=== PATIENT | male | born 1960 | race Caucasian/White ===

== ENCOUNTER → 2020-01-02 | Outpatient (CLI) | payer SELFPAY ==
[~2020-01-02] MED LIST: SULTRIDS PO
== END | disposition home or self-care (01) ==
LOC: LAB SHORT 09:27 → PLD 09:27
DX: C44.519 Basal cell carcinoma of skin of other part of trunk (principal)
CPT/HCPCS: 88305

== ENCOUNTER 2023-06-30 16:34 | Observation (INO) | payer OTHER ==
[~2023-06-30] VITALS: Ht 167.6 cm; Wt 66.9 kg
[2023-06-30 17:57] LABS: BASOPHILS ABSOLUTE AUTO 0.03 K/mm3 (0.00-0.23); BASOPHILS PERCENT AUTO 0 % (0-2); EOSINOPHILS ABSOLUTE AUTO 0.14 K/mm3 (0.00-0.68); EOSINOPHILS PERCENT AUTO 2 % (0-6); Hematocrit 42.8 % (37.0-53.0); Hemoglobin 14.5 g/dL (13.5-17.5); IMMATURE GRAN ABSOLUTE AUTO 0.02 K/mm3 (0.00-0.10); IMMATURE GRAN PERCENT AUTO 0 % (0-1); LYMPHOCYTES ABSOLUTE AUTO 1.83 K/mm3 (0.84-5.20); LYMPHOCYTES PERCENT AUTO 26 % (21-46); MONOCYTES ABSOLUTE AUTO 0.63 K/mm3 (0.16-1.47); MONOCYTES PERCENT AUTO 9 % (4-13); Mean Corpuscular HGB 31.3 pg (26.0-34.0); Mean Corpuscular HGB Conc 33.9 g/dL (31.5-36.5); Mean Corpuscular Volume 92 fL (80-100); Mean Platelet Volume 9.7 fL (9.1-12.4); NEUTROPHILS ABSOLUTE AUTO 4.52 K/mm3 (1.96-9.15); NEUTROPHILS PERCENT AUTO 63 % (41-73); Platelet Count 247 K/mm3 (150-400); RDW Coefficient Variation 12.3 % (11.7-14.2); RDW Standard Deviation 41.7 fL (35.1-46.3); Red Blood Cell Count 4.63 M/mm3 (4.30-5.90); White Blood Cell Count 7.17 K/mm3 (4.00-11.30)
[2023-06-30 18:18] LABS: Albumin, Blood 3.9 g/dL (3.4-5.0); Bilirubin, Total 0.6 mg/dL (0.1-1.0); Bun/Creatinine Ratio 18.1 (12.0-20.0); Calcium, Blood 9.9 mg/dL (8.5-10.1); Creatinine, Blood 0.61 mg/dL (0.60-1.20); Globulin, Blood 4.1 g/dL (2.2-4.0); Potassium, Blood 4.1 mmol/L (3.5-5.5)
[2023-06-30] MEDS ORDERED: BACL10 PO (20:57)
[2023-06-30] MEDS ORDERED: GABA400 PO (20:57)
[2023-06-30] MEDS ORDERED: OXYC5 PO (20:57)
[2023-06-30] MEDS ORDERED: FentaNYL Citrate 50 MCG/ML 2 ML Injection IV ONE (21:20)
[2023-06-30] MEDS ORDERED: Dicyclomine HCl 20 MG Tab PO ONE (21:20)
[2023-06-30] MEDS ORDERED: Ondansetron HCl 2 MG / ML 2ML Vial IV ONE (21:20)
[2023-06-30] MEDS ORDERED: NS 1,000 ML IV SCH (22:35)
[2023-06-30] MEDS ORDERED: FentaNYL Citrate 50 MCG/ML 2 ML Injection IV PRN (22:35)
[2023-06-30] MEDS ORDERED: Ondansetron HCl 2 MG / ML 2ML Vial IV PRN (22:35)
[2023-07-01] VITALS (18 sets, daily range): BP systolic 107–165; BP diastolic 63–98
--- NOTE | 2023-07-01 00:42 | NUR ---
ARRIVAL PT NEW ADMIT FROM ER W/OTTO. PT ARRIVED IN NO DISTRESS, A/OX4. CAN AMBULATE INDEP W/CANE BUT IS SBA W/ IV POLE. REPORTS RUQ AND UPPER EPIGASTRIC PAIN, MEDICATED PER EMAR. VSS, TELE READS SINUS 80'S. PLAN TO BE NPO FOR PROCEDURE IN THE AM.
[2023-07-01] MEDS ORDERED: Baclofen 10 MG Tab PO SCH (00:45)
[2023-07-01] MEDS ORDERED: Gabapentin 300 MG Cap PO SCH (00:45)
[2023-07-01] MEDS ORDERED: HydrALAZINE HCl 20 MG / ML 1ML Vial IV PRN (01:10)
--- NOTE | 2023-07-01 02:04 | NUR ---
TELE CHANGES CALL FROM TELE THAT THE PATIENT HAS ST ELEVATION AND DEPRESSION. WHEN ASSESSING THE PT HE REMAINS ASYMPTOMATIC. EKG UNREMARKABLE. HOSPITSALIST UPDATED, NO NEW ORDERS AT THIS TIME
[2023-07-01 02:10] LABS: International Normalized Ratio 0.98; Prothrombin Time Results 10.5 Sec (9.7-11.5)
[2023-07-01] MEDS ORDERED: OxyCODONE HCL 5 MG TAB PO PRN (04:50)
--- NOTE | 2023-07-01 06:03 | NUR ---
SHIFT SUMMARY VSS. PT SLEPT ON AND OFF SINCE ARRRIVAL TO THE UNIT. HAS REMAINED NPO IN ANTICIPATION FOR SURGERY TODAY. MEDICATED FOR PAIN WITH PRN'S. PT DENIES N/V. AMBULATING TO BATHROOM W/SBA. TELE IN PLACE, PT REMAINS ASYMPTOMATIC T/O THE NIGHT OF ANY CP/PRESSURE/ TIGHTNESS. NO ACUTE EVENTS NOTED. PT EXPRESSED WANTED TO DISCHARGE HOME TODAY AFTER SURGERY
[2023-07-01 06:53] LABS: BASOPHILS ABSOLUTE AUTO 0.04 K/mm3 (0.00-0.23); BASOPHILS PERCENT AUTO 1 % (0-2); EOSINOPHILS ABSOLUTE AUTO 0.16 K/mm3 (0.00-0.68); EOSINOPHILS PERCENT AUTO 2 % (0-6); Hematocrit 39.6 % (37.0-53.0); Hemoglobin 13.6 g/dL (13.5-17.5); IMMATURE GRAN ABSOLUTE AUTO 0.02 K/mm3 (0.00-0.10); IMMATURE GRAN PERCENT AUTO 0 % (0-1); LYMPHOCYTES PERCENT AUTO 29 % (21-46); MONOCYTES ABSOLUTE AUTO 0.75 K/mm3 (0.16-1.47); MONOCYTES PERCENT AUTO 10 % (4-13); Mean Corpuscular HGB Conc 34.3 g/dL (31.5-36.5); Mean Corpuscular Volume 90 fL (80-100); Mean Platelet Volume 9.5 fL (9.1-12.4); NEUTROPHILS ABSOLUTE AUTO 4.47 K/mm3 (1.96-9.15); NEUTROPHILS PERCENT AUTO 59 % (41-73); Platelet Count 240 K/mm3 (150-400); RDW Standard Deviation 39.8 fL (35.1-46.3); Red Blood Cell Count 4.39 M/mm3 (4.30-5.90); White Blood Cell Count 7.64 K/mm3 (4.00-11.30)
[2023-07-01 07:21] LABS: Albumin, Blood 3.5 g/dL (3.4-5.0); Bilirubin, Total 0.7 mg/dL (0.1-1.0); Calcium, Blood 9.5 mg/dL (8.5-10.1); Creatinine, Blood 0.5 mg/dL (0.60-1.20); Globulin, Blood 3.4 g/dL (2.2-4.0); Potassium, Blood 3.7 mmol/L (3.5-5.5); Total Protein, Blood 6.9 g/dL (6.4-8.2)
[2023-07-01] MEDS ORDERED: propofoL 20 ML IV ONE (12:45)
[2023-07-01] MEDS ORDERED: Rocuronium Bromide 10 MG/ML 5ML Injection IV ONE (12:46)
[2023-07-01] MEDS ORDERED: Lidocaine HCl 2% Jelly 120MG/6ML SYR (20MG PER ML) ONE (12:46)
[2023-07-01] MEDS ORDERED: FentaNYL Citrate 50 MCG/ML 2 ML Injection ONE ×3 (12:46→14:37)
[2023-07-01] MEDS ORDERED: Bupivacaine 0.5% HCl 5 MG/ML 30MLVIAL ONE (12:52)
[2023-07-01] MEDS ORDERED: Midazolam HCl 1MG / ML 2ML Vial IV SCH (13:15)
[2023-07-01] MEDS ORDERED: Lactated Ringer's 1,000 ML IV SCH (13:15)
[2023-07-01] MEDS ORDERED: CeFAZolin Sodium 2,000 MG in NS 100 ML IV SCH (13:20)
--- NOTE | 2023-07-01 13:33 | NUR ---
FLUSHED IV SITE RFA WITH 10NS/PATENT.
[2023-07-01] MEDS ORDERED: Dexamethasone Sod Phos 10 MG/ML 1ML VIAL ONE (13:42)
[2023-07-01] MEDS ORDERED: Ondansetron HCl 2 MG / ML 2ML Vial ONE ×2 (13:42→14:41)
[2023-07-01] MEDS ORDERED: Phenylephrine HCl 100 MCG/ML-NS 10MLSYR (1MG/10ML) ONE (13:43)
[2023-07-01] MEDS ORDERED: Labetalol HCL 5 MG/ML 4ML Injection (Single Dose) ONE (13:55)
[2023-07-01] MEDS ORDERED: Sugammadex Sodium 200 MG/2ML SDV (100 MG/ML) ONE (14:07)
[2023-07-01] MEDS ORDERED: Flumazenil 0.1 MG / ML 5ML Vial ONE (14:16)
[2023-07-01] MEDS ORDERED: HYDROmorphone HCl/Pf 1MG SYR ONE (14:58)
[2023-07-01] MEDS ORDERED: Ketorolac Tromethamine 30mg Vial ONE (15:12)
[2023-07-01] MEDS ORDERED: NS 1,000 ML IV SCH (16:25)
[2023-07-01] MEDS ORDERED: Ondansetron HCl 2 MG / ML 2ML Vial IV PRN (16:25)
[2023-07-01] MEDS ORDERED: OxyCODONE 5 mg/Acetamin 325 mg TABLET PO PRN (17:30)
[2023-07-01] MEDS ORDERED: HYDROmorphone HCl/Pf 1MG SYR IV PRN (17:30)
--- NOTE | 2023-07-01 19:47 | NUR ---
DISCHARGE PT EDUCATED W/ DISCHARGE INSTRUCTIONS. SCRIPT GIVEN TO PT AND COPY IN CHART. PT VERBALIZED UNDERSTANDING AND HAS NO FURTHER QUESTIONS REGAURDING HIS CARE. IV REMOVED, TELE REMOVED. X4 LAP SITES ARE C/D/I, UMBILICAL BANDAIDE CHANGED. PT REPORTS MINIMAL ABD DISCOMFORT AND DOES NOT NEED PAIN MEDICATION AT THIS TIME. AMBULATING INDEP, VOIDING W/O DFFICULTY. TOLLERTING PO INTAKE W/O N/V. AWAITING RIDE TO ARRIVE.
--- NOTE | 2023-07-01 19:57 | NUR ---
LEAVING PATIENT IS BEING WHEELED OUT TO HIS RIDE VIA FARROWING MANAGER
== END 2023-07-01 19:57 | disposition home or self-care (01) ==
LOC: ER 16:34 → SURS 16:35
PROVIDERS: Nurse Practitioner; Surgery; ADMIT Internal Medicine
PROC: 0FT44ZZ Resection of Gallbladder, Percutaneous Endoscopic Approach (ICD-10-PCS; principal; 2023-07-01 13:00)
DX: K80.10 Calculus of gallbladder with chronic cholecystitis without obstruction (principal); I10 Essential (primary) hypertension; Z79.899 Other long term (current) drug therapy
CPT/HCPCS: 36415; 74177; 80053; 83690; 83880; 85025; 85610; 88304; 93005; 93010; 96374-59; 96376; 99285-25; A9270; G0378; J0690; J1100; J1170; J1885; J2250; J2371; J2405; J2704; J3010; J7030; J7120; Q9967

== ENCOUNTER 2023-07-08 06:34 | Emergency (ER) | payer OTHER ==
[~2023-07-08] VITALS: Ht 167.6 cm; Wt 70.3 kg
[~2023-07-08 06:34] MED LIST changes: +BACL10 PO; +GABA400 PO; +OXYC5 PO
[2023-07-08 07:49] LABS: BASOPHILS ABSOLUTE AUTO 0.03 K/mm3 (0.00-0.23); BASOPHILS PERCENT AUTO 0 % (0-2); EOSINOPHILS PERCENT AUTO 5 % (0-6); Hematocrit 39.3 % (37.0-53.0); Hemoglobin 13.3 g/dL (13.5-17.5); IMMATURE GRAN ABSOLUTE AUTO 0.02 K/mm3 (0.00-0.10); IMMATURE GRAN PERCENT AUTO 0 % (0-1); LYMPHOCYTES ABSOLUTE AUTO 2.18 K/mm3 (0.84-5.20); LYMPHOCYTES PERCENT AUTO 32 % (21-46); MONOCYTES ABSOLUTE AUTO 0.75 K/mm3 (0.16-1.47); MONOCYTES PERCENT AUTO 11 % (4-13); Mean Corpuscular HGB 31.2 pg (26.0-34.0); Mean Corpuscular HGB Conc 33.8 g/dL (31.5-36.5); Mean Corpuscular Volume 92 fL (80-100); Mean Platelet Volume 9.4 fL (9.1-12.4); NEUTROPHILS ABSOLUTE AUTO 3.46 K/mm3 (1.96-9.15); NEUTROPHILS PERCENT AUTO 51 % (41-73); Platelet Count 266 K/mm3 (150-400); RDW Coefficient Variation 12.1 % (11.7-14.2); Red Blood Cell Count 4.26 M/mm3 (4.30-5.90); White Blood Cell Count 6.74 K/mm3 (4.00-11.30)
[2023-07-08 08:07] LABS: Albumin, Blood 3.3 g/dL (3.4-5.0); Albumin/Globulin Ratio 0.9 (0.8-1.8); Bilirubin, Total 0.3 mg/dL (0.1-1.0); Bun/Creatinine Ratio 9.7 (12.0-20.0); Calcium, Blood 9.1 mg/dL (8.5-10.1); Creatinine, Blood 0.52 mg/dL (0.60-1.20); Globulin, Blood 3.6 g/dL (2.2-4.0); Potassium, Blood 3.8 mmol/L (3.5-5.5); Total Protein, Blood 6.9 g/dL (6.4-8.2)
[2023-07-08] MEDS ORDERED: DOCU100 PO (09:05)
[2023-07-08] MEDS ORDERED: ONDA4ODT MM (09:05)
[2023-07-08] MEDS ORDERED: DICY20 PO (09:10)
[2023-07-08 10:05] VITALS: BP 155/98
== END 2023-07-08 09:55 | disposition home or self-care (01) ==
LOC: ER 06:34
PROVIDERS: Emergency Medicine
DX: R10.12 Left upper quadrant pain (principal); R10.13 Epigastric pain
CPT/HCPCS: 74177; 80053; 83690; 84484; 85025; 93005; 93010; 99284-25; Q9967